=== PATIENT | male | born 1975 | race Caucasian/White ===

== ENCOUNTER 2019-04-08 08:05 | Emergency (ER) | payer OTHER, SELFPAY ==
[2019-04-08 08:06] VITALS: BP 158/94; PULSE 76; RESP 18; TEMP 36.6; O2SAT 98; BMI 30.5
--- NOTE | 2019-04-08 08:24 | CT_ITS ---
STUDY: CT ABDOMEN AND PELVIS WITH CONTRAST REASON FOR EXAM: Male, 43 years old. LOWER ABDOM PAIN INTERMITTEN FEVER X 2 WEEKS RADIATION DOSAGE (If Supplied By Facility): CTDIvol = ( 17.64 ) mGy, DLP = ( 1378.89 ) mGycm TECHNIQUE: Transaxial images were obtained from the dome of the diaphragm to the symphysis pubis with oral contrast. IV 100mL Isovue-300 W ORAL was administered. Sagittal and coronal images were reconstructed. Individualized dose optimization techniques were used for this CT. COMPARISON: None. FINDINGS: The visualized lung bases are unremarkable. The visualized portions of the heart are within normal limits. Normal liver. Normal gallbladder and extrahepatic biliary system. Normal spleen. Normal pancreas. Normal bilateral adrenal glands. 3 cm cyst in the midsection right kidney appear Normal left kidney. Normal visualized stomach. Normal small intestine. Normal colon. There are surgical clips in the region of the appendix consistent with a prior appendectomy. Normal abdominal aorta. Normal inferior vena cava. Normal retroperitoneum. Normal urinary bladder. Normal abdominal wall. Normal osseous structures. CT/Abdomen/Pelvis WITH Contrast IMPRESSION: Normal enhanced CT of the abdomen and pelvis. Electronically Signed: Trenton Danielle MD at 11:03 EST Tel , Service support ,
--- NOTE | 2019-04-08 08:24 | EKG12_ITS ---
Test Reason : Blood Pressure : / mmHG Vent. Rate : 069 BPM Atrial Rate : 069 BPM P-R Int : 156 ms QRS Dur : 098 ms QT Int : 414 ms P-R-T Axes : 051 027 029 degrees QTc Int : 443 ms Normal sinus rhythm Normal ECG Confirmed by MANNY SIMENTAL MD ([id number]), telegraph editor ROSALIA BARNES ([id number]) on 04/12/2019 9:04:57 AM Referred By: DONNA Confirmed By:MANNY SIMENTAL MD
--- NOTE | 2019-04-08 08:25 | ED.VIS.GEN ---
History of Present Illness Chief Complaint: Abd Pain Informant: Patient, Family Onset: Weeks Context: Gradual Onset Timing: Waxes and wanes Current Severity: Moderate Maximum Severity: Moderate Narrative: Patient presents with continued epigastric abdominal pain. Patient has had symptoms for the last month or so. Has had 5 or 6 ER visits over that time. He is currently on Pepcid, Carafate, pantoprazole. Patient states this morning he woke up but just felt very weak. He was able to ambulate to the car to have his bring him to the emergency room. He has not been seen at this facility previously. I was able to review some notes from [facility] where he was seen twice in the last 2 or 3 days. Blood work was unremarkable. I do not see imaging studies. Patient was referred to GI for follow-up. He has an appointment in 1 week. - Past Medical History (1) GERD (gastroesophageal reflux disease) Status: Chronic (2) Gastritis Status: Chronic (3) History of appendectomy Status: Chronic Past Medical History - Allergies and Home Meds Allergies/Adverse Reactions: Allergies erythromycin base Allergy (Verified 04/08/19 08:09) Hives Penicillins Allergy (Verified 04/08/19 08:09) Rash Primary Care Physician: Hood Moore DO [Primary Care Provider] - Prior records reviewed: Yes Lives: Spouse/ Significant Other Review of Systems General: Denies: Chills, Fever Eyes: Denies: Visual changes - bilaterally ENT: Denies: Bilateral ear pain Cardiovascular: Denies: Chest pain Respiratory: Denies: Dyspnea, Cough Gastrointestinal: Reports: Abdominal pain, Nausea Genitourinary: Denies: Dysuria Musculoskeletal: Reports: Myalgias, Arthralgias, Extremity Pain Skin: Denies: Rash Neurological: Reports: Weakness - Dentalized weakness. Denies: Headache Hematologic: Denies: Easy bruising Allergy: Denies: Uticaria Physical Exam Vital Signs/Narrative: Vital Signs Temp Pulse Resp BP Pulse Ox 04/08/19 08:06 98 F 76 18 158/94 H 98 Inital Vital Signs reviewed: Yes General: Well nourished, Well developed Head: Normocephalic ENT: Moist mucous membranes Neck: Supple Cardiovascular: Regular rate, Regular rhythm Respiratory: No distress, CTA bilaterally Abdomen: Soft, Tender - Generalized tenderness to palpation., Hypoactive bowel sounds. Negative for: Guarding, Rebound tenderness Skin: Normal color Neurological: Alert, Oriented x3 Psychological: - - Anxious Diagnostic/Tx/Re-eval Impressions Abdomen/Pelvis CT 04/08/19 08:24 IMPRESSION: Normal enhanced CT of the abdomen and pelvis. Electronically Signed: Trenton Danielle MD at 11:03 EST Tel , Service support , 04/08/19 08:24 Abdomen/Pelvis WITH Contrast [CT] Stat Laboratory Results 04/08/19 04/08/19 04/08/19 09:00 09:00 09:00 WBC 5.8 RBC 5.51 Hgb 15.9 Hct 47.7 MCV 86.6 MCH 28.9 MCHC 33.3 RDW Std Deviation 40.0 RDW Coeff of Margo 12.7 Plt Count 204 MPV 10.2 Immature Gran % (Auto) 0.300 Neut % (Auto) 66.4 Lymph % (Auto) 21.9 [place] % (Auto) 9.3 Eos % (Auto) 1.4 Baso % (Auto) 0.7 Absolute Neuts (auto) 3.9 Absolute Lymphs (auto) 1.27 Nucleated RBC % 0 Sodium 141 Potassium 3.7 Chloride 106 Carbon Dioxide 29.0 Anion Gap 6 BUN 11 Creatinine 1.06 Estim Creat Clear Calc 90.87 Est GFR (MDRD) Af Amer 97 Est GFR (MDRD) Non-Af 80 BUN/Creatinine Ratio 10.4 Glucose 110 H Lactic Acid 0.6 Calcium 9.3 Total Bilirubin 0.60 Direct Bilirubin 0.15 AST 18 ALT 59 Alkaline Phosphatase 71 Troponin I < 0.015 Total Protein 7.7 Albumin 3.8 Globulin 3.9 Lipase 216 - Medical Decision Making Patient was given morphine and Zofran along with IV fluids. On repeat evaluation he states he still has significant pain along the waistband area. The epigastric pain seems to be improved. I spoke with Dr. Riddle, on-call for surgery. She reviewed his test and CT images. She recommended giving a dose of IV Protonix now. If he has been on the Protonix more than 2 weeks he should try [id number] Nexium instead to see if he has better response to this. In speaking with the patient has been on Protonix for the past 4 weeks. He will try [id number] Nexium. He will call Dr. Riddle's office with follow-up on Thursday and scope early next week. Patient be given a short course of [place] to help with pain and given a prescription for Zofran. ED Disposition - Plan for ED Patient: Disposition: Home or Assisted Living Diagnosis: Abdominal pain Instructions: ABDOMINAL PAIN, Unkown Cause, (Male) Prescriptions: Hydrocodone Bitart/Apap 5-325 [[place] 5MG-325MG] 1 tablet PO Q6H PRN PRN 3 Days #10 tablet PRN Reason: Pain Transmission Status: Received by [facility]/pharmacy #[id number] Ondansetron [Zofran Odt] 4 mg PO Q8H PRN PRN #10 tab PRN Reason: Nausea Transmission Status: Pending to [facility]/pharmacy #[id number] Referrals: Ammy Riddle MD [STAFF PHYSICIAN] - As soon as possible Additional Instructions: As discussed, try over the counter Nexium in place of Protonix to see if you have a better response. Call Dr Riddle's office as soon as possible - let them know you were seen in the ED and Dr Riddle was contacted. She wants to see you in the office on Thursday.
--- NOTE | 2019-04-08 08:36 | NURSING ---
NO OLD EKGS
[2019-04-08] MEDS: 0.9% Normal Saline 1,000 ML 150 ML IV (08:54)
[2019-04-08] MEDS: Morphine 4 MG/ML Syringe IV (08:54)
[2019-04-08] MEDS: Ondansetron 4 MG/2 ML Vial IV (08:54)
[2019-04-08 09:18] LABS: Absolute Lymphocyte Count 1.27 X10^3/uL (0.83-4.51); Absolute Neutrophil Count 3.9 X10^3/uL (2.0-7.7); Basophil# 0.04 X10^3/uL; Basophil% 0.7 % (0-1); Eosinophil# 0.08 X10^3/uL; Eosinophils% 1.4 % (0-5); Hematocrit 47.7 % (40-54); Hemoglobin 15.9 g/dL (13.0-16.5); Lymphocyte # 1.27 X10^3/ul (4.0); Lymphocyte % 21.9 % (19-41); Mean Corp Hgb Conc 33.3 g/dL (32-36); Mean Corpuscular Hgb 28.9 pg (27.0-32.0); Mean Corpuscular Volume 86.6 fL (80-94); Mean Platelet Vol. 10.2 fl (6.2-12.0); Monocyte# 0.54 X10^3/uL; Monocyte% 9.3 % (0-10); NRBC Flagged by Analyzer 0 % (0-5); Neutrophil # 3.85 X10^3/uL (2.7-7.7); Neutrophil % 66.4 % (47-70); Platelet Count 204 K/mm3 (150-450); RBC Distribution Width CV 12.7 % (11.6-14.6); Red Blood Count 5.51 M/mm3 (4.6-6.2); White Blood Count 5.8 K/mm3 (4.4-11.0)
[2019-04-08 09:35] LABS: AST(SGOT) 18 U/L (15-37); Alanine Aminotransfer ALT/SGPT 59 U/L (16-61); Albumin, Serum 3.8 g/dL (3.2-5.0); Alkaline Phosphatase 71 U/L (45-117); Anion Gap 6 (5-15); BUN 11 mg/dL (7-18); BUN/Creat Ratio 10.4 RATIO (10-20); Bilirubin, Direct 0.15 mg/dL (0.00-0.30); Calcium,Total 9.3 mg/dL (8.5-10.1); Chloride 106 mmol/L (98-107); Creatinine, Serum 1.06 mg/dL (0.70-1.30); EST Glomerular Filtration Rate 80 mL/min (>60); Est Glom Filt Rate - Afr Amer 97 mL/min (>60); Estimated Creatinine Clearance 90.87 ml/min; Globulin 3.9 g/dL (2.2-4.2); Glucose 110 mg/dL (74-106); Lipase 216 U/L (73-393); Potassium 3.7 mmol/L (3.5-5.1); Protein, Total 7.7 g/dL (6.4-8.2); Sodium Level 141 mmol/L (136-145)
[2019-04-08 09:42] LABS: Lactic Acid 0.6 mmol/L (0.4-1.9)
[2019-04-08 12:05] VITALS: BP 145/101; PULSE 76; RESP 16; O2SAT 96
[2019-04-08 12:49] VITALS: BP 140/89; PULSE 75; RESP 12; O2SAT 96
== END 2019-04-08 12:51 | disposition home or self-care (01) ==
PROVIDERS: Emergency Provider Emergency Medicine; Family Provider Family Medicine; PCP Family Medicine
DX: R10.13 Epigastric pain (principal); R53.1 Weakness; K21.9 Gastro-esophageal reflux disease without esophagitis; Z79.899 Other long term (current) drug therapy; Z88.1 Allergy status to other antibiotic agents; Z88.0 Allergy status to penicillin; Z87.19 Personal history of other diseases of the digestive system
CPT/HCPCS: 74177; 80048; 80076; 83605; 83690; 84484; 85025; 93005; 96361; 96365; 96375; 99284; J7030; J7050; Q9967; A4216; J2405

== ENCOUNTER 2019-04-11 03:42 | Emergency (ER) | payer OTHER, SELFPAY ==
[2019-04-11 03:44] VITALS: BP 148/100; PULSE 79; RESP 14; TEMP 36.5; O2SAT 100; BMI 31.2
--- NOTE | 2019-04-11 03:44 | ED.RN ---
RN CALLED FOR EKG, PULLED OLD EKGS FOR
--- NOTE | 2019-04-11 03:56 | EKG12_ITS ---
Test Reason : CP Blood Pressure : / mmHG Vent. Rate : 078 BPM Atrial Rate : 078 BPM P-R Int : 134 ms QRS Dur : 092 ms QT Int : 388 ms P-R-T Axes : 009 043 022 degrees QTc Int : 442 ms Sinus rhythm with occasional Premature ventricular complexes Otherwise normal ECG Confirmed by KALYAN CRUZ, VESTA ([id number]), loan expeditor YUDELKA REYES ([id number]) on 04/13/2019 10:44:37 AM Referred By: DONNA Confirmed By:VESTA BIGGS MD
--- NOTE | 2019-04-11 03:57 | ED.DCSUM_ITS ---
History of Present Illness Chief Complaint: Chest Pain Informant: Patient Onset: Days Context: Gradual Onset Current Severity: Moderate Maximum Severity: Moderate Narrative: Patient has had multiple recent ED visits to different facilities for severe reflux disease. He is scheduled to see Dr. Riddle in the office today to schedule a scope. Patient was seen in the ER just a few days ago. He states his pain was good for a day and a half, but returned after eating a pork chop from [employer]. He has had reflux more severe now again for the past 24 hours. He is not been able to sleep. He tried Maalox as well as Nexium without improvement. - Past Medical History (1) GERD (gastroesophageal reflux disease) Status: Chronic (2) Gastritis Status: Chronic (3) History of appendectomy Status: Chronic Past Medical History - Allergies and Home Meds Allergies/Adverse Reactions: Allergies erythromycin base Allergy (Verified 04/11/19 03:43) Hives Penicillins Allergy (Verified 04/11/19 03:43) Rash Primary Care Physician: Hood Moore DO [Primary Care Provider] - Prior records reviewed: Yes Lives: Spouse/ Significant Other Smoking Status: Never smoker Review of Systems General: Denies: Chills, Fever Eyes: Denies: Visual changes - bilaterally ENT: Denies: Sore throat Cardiovascular: Reports: Chest pain Respiratory: Denies: Dyspnea, Cough Gastrointestinal: Reports: Abdominal pain. Denies: Nausea, Vomiting, Diarrhea Musculoskeletal: Reports: Back pain. Denies: Neck pain Skin: Denies: Rash Allergy: Denies: Uticaria Physical Exam Vital Signs/Narrative: Vital Signs Temp Pulse Resp BP Pulse Ox 04/11/19 03:44 97.7 F L 79 14 148/100 H 100 Inital Vital Signs reviewed: Yes General: Well nourished, Well developed Head: Normocephalic ENT: Moist mucous membranes Neck: Supple Cardiovascular: Regular rate, Regular rhythm Respiratory: No distress, CTA bilaterally Abdomen: Soft, Normal bowel sounds, Tender - Mild tenderness in the epigastrium.. Negative for: Guarding, Rebound tenderness Extremities: Nontender Skin: Normal color, Pallor Neurological: Alert, Oriented x3 Psychological: Normal affect Diagnostic/Tx/Re-eval Laboratory Results 04/11/19 04/11/19 04/11/19 04:00 04:00 04:00 WBC 6.0 RBC 5.54 Hgb 15.7 Hct 46.4 MCV 83.8 MCH 28.3 MCHC 33.8 RDW Std Deviation 39.0 RDW Coeff of Margo 12.8 Plt Count 177 MPV 10.3 Immature Gran % (Auto) 0.300 Neut % (Auto) 66.2 Lymph % (Auto) 20.5 [place] % (Auto) 11.0 H Eos % (Auto) 1.5 Baso % (Auto) 0.5 Absolute Neuts (auto) 4.0 Absolute Lymphs (auto) 1.23 Nucleated RBC % 0 Sodium 137 Potassium 4.2 Chloride 105 Carbon Dioxide 27.0 Anion Gap 5 BUN 10 Creatinine 1.06 Estim Creat Clear Calc 90.87 Est GFR (MDRD) Af Amer 97 Est GFR (MDRD) Non-Af 80 BUN/Creatinine Ratio 9.4 L Glucose 106 Calcium 8.9 Total Bilirubin 0.90 Direct Bilirubin 0.11 AST 37 ALT 66 H Alkaline Phosphatase 71 Troponin I < 0.015 Total Protein 7.7 Albumin 3.8 Globulin 3.9 Lipase 209 TSH 2.47 Cancelled - EKG Initial EKG Interpretation: Sinus Rhythm - Sinus at 78 with no acute ischemia. Occasional PVCs noted. - Medical Decision Making Patient's work-up from a few days ago was reviewed. Patient was given morphine, Zofran, Protonix, and a GI cocktail. On repeat evaluation he stated his pain was not improved. He reported a tingling sensation across his face and in both hands. Patient has significant anxiety and was given 1 mg of p.o. Ativan. On repeat evaluation he states the tingling is resolved. He is now getting tight muscle spasms throughout his back and in his lower legs. His right-sided chest pain is reproducible. Patient has been holding himself tense for the past several days secondary to his pain. He does have significant anxiety related to this. He is given a dose of Flexeril and at this time is resting comfortably. He will be discharged from the ED to go to his appointment with Dr. Riddle this morning. He is supposed to be scheduled for a scope this week. ED Disposition - Plan for ED Patient: Disposition: Home or Assisted Living Diagnosis: Muscle spasm, GERD (gastroesophageal reflux disease) Instructions: CHEST PAIN, NonCardiac, Muscle Spasm, GERD (Adult) Referrals: Hood Moore DO [Primary Care Provider] - Ammy Riddle MD [STAFF PHYSICIAN] -
[2019-04-11] MEDS: Mag Hydrox/Al Hydrox/Simeth 30 ML UDC PO (04:08)
[2019-04-11] MEDS: 0.9% Normal Saline 1,000 ML 150 ML IV (04:08)
[2019-04-11 04:10] LABS: Absolute Lymphocyte Count 1.23 X10^3/uL (0.83-4.51); Basophil# 0.03 X10^3/uL; Basophil% 0.5 % (0-1); Eosinophil# 0.09 X10^3/uL; Eosinophils% 1.5 % (0-5); Hematocrit 46.4 % (40-54); Hemoglobin 15.7 g/dL (13.0-16.5); Lymphocyte # 1.23 X10^3/ul (4.0); Lymphocyte % 20.5 % (19-41); Mean Corp Hgb Conc 33.8 g/dL (32-36); Mean Corpuscular Hgb 28.3 pg (27.0-32.0); Mean Corpuscular Volume 83.8 fL (80-94); Mean Platelet Vol. 10.3 fl (6.2-12.0); Monocyte# 0.66 X10^3/uL; NRBC Flagged by Analyzer 0 % (0-5); Neutrophil # 3.97 X10^3/uL (2.7-7.7); Neutrophil % 66.2 % (47-70); Platelet Count 177 K/mm3 (150-450); RBC Distribution Width CV 12.8 % (11.6-14.6); Red Blood Count 5.54 M/mm3 (4.6-6.2)
[2019-04-11 04:41] LABS: AST(SGOT) 37 U/L (15-37); Alanine Aminotransfer ALT/SGPT 66 U/L (16-61); Albumin, Serum 3.8 g/dL (3.2-5.0); Alkaline Phosphatase 71 U/L (45-117); Anion Gap 5 (5-15); BUN 10 mg/dL (7-18); BUN/Creat Ratio 9.4 RATIO (10-20); Bilirubin, Direct 0.11 mg/dL (0.00-0.30); Calcium,Total 8.9 mg/dL (8.5-10.1); Chloride 105 mmol/L (98-107); Creatinine, Serum 1.06 mg/dL (0.70-1.30); EST Glomerular Filtration Rate 80 mL/min (>60); Est Glom Filt Rate - Afr Amer 97 mL/min (>60); Estimated Creatinine Clearance 90.87 ml/min; Globulin 3.9 g/dL (2.2-4.2); Glucose 106 mg/dL (74-106); Lipase 209 U/L (73-393); Potassium 4.2 mmol/L (3.5-5.1); Protein, Total 7.7 g/dL (6.4-8.2); Sodium Level 137 mmol/L (136-145); Thyroid Stim Hormone (TSH) 2.47 uIU/mL (0.358-3.74)
[2019-04-11] MEDS: Ondansetron 4 MG/2 ML Vial IV (04:52)
[2019-04-11] MEDS: Morphine 4 MG/ML Syringe IV (04:53)
[2019-04-11 04:58] VITALS: BP 135/90; PULSE 68; RESP 14; O2SAT 99
[2019-04-11] MEDS: LORazepam 1 MG Tablet PO (05:46)
[2019-04-11 06:02] VITALS: BP 139/97; PULSE 68; RESP 12; O2SAT 99
[2019-04-11] MEDS: cycloBENZAPRine HCl 10 MG Tablet PO (06:46)
--- NOTE | 2019-04-11 06:51 | ED.RN ---
DR. THOMPSON SAID IT IS OK TO TAKE PATIENT OFF OF THE MONITOR SO HE CAN CHANGE POSITIONS TO HELP HIS BACK SPASMS.
[2019-04-11 08:59] VITALS: BP 140/84; PULSE 79; RESP 18
== END 2019-04-11 09:01 | disposition home or self-care (01) ==
PROVIDERS: Emergency Provider Emergency Medicine; Family Provider Family Medicine; PCP Family Medicine
DX: M62.838 Other muscle spasm (principal); K21.9 Gastro-esophageal reflux disease without esophagitis; K29.70 Gastritis, unspecified, without bleeding; I49.3 Ventricular premature depolarization; R20.2 Paresthesia of skin; F41.9 Anxiety disorder, unspecified; Z79.899 Other long term (current) drug therapy; Z88.1 Allergy status to other antibiotic agents; Z88.0 Allergy status to penicillin
CPT/HCPCS: 80048; 80076; 83690; 84443; 84484; 85025; 93005; 96361; 96365; 96375; 99285; J7030; A4216; J2405

== ENCOUNTER 2019-04-14 08:20 | Day surgery (SDC) | payer OTHER, SELFPAY ==
[2019-04-11 09:36] VITALS: BMI 31.2
--- NOTE | 2019-04-13 01:59 | HP_ITS ---
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: No Is patient in pain?: No (Epigastric/ R Flank pain on and off) Allergies erythromycin base Allergy (Verified 04/12/19 09:39) Hives Penicillins Allergy (Verified 04/12/19 09:39) Rash Medications Ondansetron [Zofran Odt] 4 mg PO Q8H PRN PRN #10 tab 04/08/19 [Rx Confirmed 04/12/19] Sertraline HCl [Zoloft] 50 mg PO DAILY 04/08/19 [History Confirmed 04/12/19] Esomeprazole Magnesium [Nexium] 20 mg PO DAILY 04/11/19 [History Confirmed 04/12/19] cycloBENZAPRine HCl [Flexeril] 10 mg PO TID PRN PRN 04/12/19 [History Confirmed 04/12/19] PFSH Medical History Anxiety (Acute) Back problem (Acute) Fatigue (Acute) Epigastric pain (Acute) GERD (gastroesophageal reflux disease) (Chronic) Gastritis (Chronic) Muscle spasm (Acute) Surgical History Hx of left knee surgery (Acute) History of appendectomy (Chronic) Family History Brother Asthma Ulcer Father Diabetes Social History (Updated 04/13/19 @ 13:59 by Ammy Riddle MD) Smoking Status: Never smoker second hand exposure: No alcohol intake: never substance use type: does not use caffeine: Yes what type of physical activity do you participate in: none frequency: does not exercise HPI HPI HPI: CHANDAN AUSTIN, is a 43 M who presents to the office today for HPI HPI Surgical H&P: Yes HPI: CHANDAN AUSTIN, is a 43 M who presents to the office today for epigastric pain/right upper quadrant pain. Patient has had multiple visits to the ER for severe reflux. Patient was seen in the ER last week as well as this morning. Patient stated that yesterday he did have pork chop at [facility] and afterwards did have increased epigastric burning. Patient was previously on Protonix 40 mg daily which he did not state helped. Patient did buy [id number] Nexium 20 mg daily which has improved his symptoms however was not able to control the symptoms with the pork chop the same may have had a lot of seasoning on it. This morning patient also states that he had pain in the right upper quadrant around towards the back. In the ER he was given morphine but stated there is no relief and he was given some Flexeril as well. Patient was also given IV Protonix in the ER which did improve his epigastric pain. Patient states he has never had colonoscopy or EGD. Patient previously had an ultrasound done of his gallbladder in [place] which did show fatty liver, no gallstones or gallbladder wall thickening and a common hepatic duct of 3.2 mm this was done 04/01/2019. Patient also had lab done at that time which showed normal white blood cell count and normal liver functions except for ALT of 48 high normal 33. Patient states that his brother has had ulcers since he was a teenager. Patient denies previous history until more recently with the reflux. ROS General General: Yes weight change and fatigue Gastro Gastrointestinal: Yes abdominal pain, Yes nausea or vomiting, No blood in stool, Yes acid reflux, No gallbladder problem Exam Const General: cooperative, comfortable, no acute distress Resp Effort & Inspection: normal respiratory effort Cardio Rate: regular rate GI Inspection: non-distended Palpation: soft, no guarding, nontender Assessment & Plan Problems 1. GERD (gastroesophageal reflux disease) K21.9 2. Epigastric pain R10.13 Plan Recommend continuing to take his Nexium 20 mg p.o. tabs [id number] discussed patient he can take them for a total of 40 either 20 twice daily or 2 pills at 1 time. We will also get his ultrasound report of his gallbladder as he did have some right-sided pain with after eating a pork chop. Patient states that he just had an gallbladder ultrasound done in [place] which was negative per him. And he denies any history of right upper quadrant pain after eating and states that the pork chop may have had a bit of seasoning/spice on it. I have discussed the above with the patient. I have offered the patient EGD for evaluation. I have explained the risks/benefits of the procedure and described the procedure. I have discussed the risks with the patient, including but not limited to: infection, bleeding, perforation of the GI tract requiring emergency surgery, inability to complete the procedure, injury to any internal organs, complications of anesthesia, etc. - the patient understands and agrees to proceed. I have answered all the patient's questions to the patient's satisfaction and the patient has no further questions. Addendum: Patient's ultrasound report: no gallstones, no wall thickening, no pericholecystic fluid, common hepatic duct of 3.2 mm Ammy Riddle M.D. Pager: [phone] [facility] [address] [place] [address], [address] [place] [address] Office: [phone] Orders Orders: EGD 04/11/19 Plan Detail Follow Up We will schedule EGD Coding Level of Care Code Off vis,new,level 3 Diagnoses GERD (gastroesophageal reflux disease) K21.9 Epigastric pain R10.13 04/13/19 1359 <Electronically signed by Ammy Renae am, MD> Date _ Ammy Riddle MD I have examined the patient the following changes are noted: Patient still been taking the Nexium 20 mg p.o. daily and denies any epigastric pain nausea or vomiting. Patient is also been having normal bowel movements as well.
[2019-04-14 08:51] VITALS: BP 145/98; PULSE 95; RESP 16; TEMP 37; O2SAT 100; BMI 30.6
[2019-04-14] MEDS: Lactated Ringers 1,000 ML 100 ML IV (08:59)
--- NOTE | 2019-04-14 09:30 | EGD_PTH ---
PATIENT: CHANDAN AUSTIN LOC: EN U#:[id number] AGE/SX: 43/M ROOM: RE04/14/[address]: Dr. Ammy Riddle MD : 1975 BED: DIS: 04/14/2019 SPEC #: [id number] RECD: 04/14/19 10:29 STATUS: SINDHU VIVIAN #: [id number] DANNI: 04/14/19 09:[address]: Ammy Riddle DEPT: SURGICAL PATHOLOGY RECD BY: Elton Erazo ENTERED: 04/14/19 11:41 SP TYPE: EGD BIOPSY NICOLE DR: Dr. Hood Moore DO Tissues: A - Gastric mucous membrane B - Gastric mucous membrane Procedures: Surgery Specimen Level IV HEADER OPERATION: EGD ([facility]) PRE-OP DIAGNOSIS: GERD, epigastric pain TISSUE SUBMITTED: A - Antrum biopsy for H. pylori and path, B - GE junction biopsy MICROSCOPIC DIAGNOSIS A. Gastric antrum, biopsy: Mild chronic gastritis. See comment. B. Gastroesophageal junction, biopsy: Mild chronic inflammation. No evidence of goblet cell metaplasia. See comment. AM:gabe 04/15/19 COMMENT A. The results of immunohistochemistry for Helicobacter pylori will be reported separately ([id number]). B. Alcian blue/PAS stain with matched control supports the above diagnosis. MICROSCOPIC DESCRIPTION Slides are reviewed. GROSS DESCRIPTION A - Received in fixative is one container labeled with the patient's name and designated gastric antrum. The specimen consists of one irregular fragment of light corona soft tissue that measures 0.3 x 0.2 x 0.1 cm. The specimen is totally submitted in one cassette. B - Received in fixative is one container labeled with the patient's name and designated GE junction. The specimen consists of one irregular fragment of light corona soft tissue that measures 0.5 x 0.2 x 0.1 cm. The specimen is totally submitted in one cassette. / AM:gabe 04/14/19 TC:3 CPT: 59343 x2, 93254
--- NOTE | 2019-04-14 09:30 | IMM_PTH ---
PATIENT: CHANDAN AUSTIN LOC: [place] U#:[id number] AGE/SX: 43/M ROOM: RE04/14/[address]: Dr. Ammy Riddle MD : 1975 BED: DIS: 04/14/2019 SPEC #: [id number] RECD: 04/14/19 13:38 STATUS: SINDHU REQ #: [id number] DANNI: 04/14/19 09:[address]: Ammy Riddle DEPT: IMMUNOHISTOCHEMISTRY RECD BY: Gaby Gonzalez ENTERED: 04/14/19 13:39 SP TYPE: IMMUNO OTHR DR: Dr. Hood Moore, Tissues: A - Stomach, NOS Procedures: H Pylori (initial) PHYSICIAN & INSTITUTION [place] [address] SPECIMEN INFORMATION: Tissue Source: A - Antrum biopsy Clinical Info: GERD, epigastric pain Specimen Number: [id number] CPT code: 55002 METHODOLOGY: Deparaffinized sections of prefer/formalin-fixed tissue or PAP/DQ stained slides are incubated with monoclonal/polyclonal antibodies/oligonucleotide probes. Localization is made via biotin free immunoperoxidase method. Appropriate controls are performed and reacted as expected. Results on target cell population are indicated in the following table: RESULTS: ANTIBODY / CLONE RESULT Block A H Pylori (polyclonal) negative These tests were developed and their performance characteristics determined by [facility]. They may not have been cleared or approved by the U.S. Food and Drug Administration. The FDA has determined that such clearance or approval is not necessary. INTERPRETATION: A. Antrum biopsy: Negative for Helicobacter pylori organisms. AM:gabe 04/15/19
[2019-04-14 09:32] VITALS: BP 138/99; BP 148/98; PULSE 76; RESP 16; TEMP 36.5; O2SAT 97
[2019-04-14 09:37] VITALS: BP 137/102; BP 148/98; PULSE 83; RESP 16; O2SAT 98
[2019-04-14 09:42] VITALS: BP 144/100; BP 148/98; PULSE 79; RESP 16; O2SAT 99
[2019-04-14 09:47] VITALS: BP 138/97; BP 148/98; PULSE 71; RESP 16; TEMP 36.7; O2SAT 99
[2019-04-14 10:04] VITALS: BP 148/98
--- NOTE | 2019-04-20 10:38 | OP.EGD_ITS ---
Patient Name: David Smith Procedure Date: 04/14/2019 9:04 AM Date of : 1975 Age: 43 Procedure: Upper GI endoscopy Indications: Epigastric abdominal pain, Suspected gastro-esophageal reflux disease Providers: Ammy Riddle MD Referring MD: Hood Moore Medicines: Monitored Anesthesia Care Patient Profile: This is a 43 year old male. Complications: No immediate complications. Procedure: Pre-Anesthesia Assessment: - Prior to the procedure, a History and Physical was performed, and patient medications and allergies were reviewed. The patient's tolerance of previous anesthesia was also reviewed. The risks and benefits of the procedure and the sedation options and risks were discussed with the patient. All questions were answered, and informed consent was obtained. Prior Anticoagulants: The patient has taken no previous anticoagulant or antiplatelet agents. ASA Grade Assessment: II - A patient with mild systemic disease. After reviewing the risks and benefits, the patient was deemed in satisfactory condition to undergo the procedure. After obtaining informed consent, the endoscope was passed under direct vision. Throughout the procedure, the patient's blood pressure, pulse, and oxygen saturations were monitored continuously. The gastroscope was introduced through the mouth, and advanced to the second part of duodenum. The upper GI endoscopy was accomplished without difficulty. The patient tolerated the procedure well. Scope In: 9:18:44 AM Scope Out: 9:26:54 AM Total Procedure Duration Time 0 hours 8 minutes 10 seconds Findings: The Z-line was irregular and was found 37 cm from the incisors. Biopsies were taken with a cold forceps for histology. Striped mildly erythematous mucosa without bleeding was found in the gastric antrum. Biopsies were taken with a cold forceps for Helicobacter pylori cultures. Biopsies were taken with a cold forceps for histology. Biopsies were taken with a cold forceps for Helicobacter pylori testing using a rapid urease test. The examined duodenum was normal. The cardia and gastric fundus were normal on retroflexion. Impression: - Z-line irregular, 37 cm from the incisors. Biopsied. - Erythematous mucosa in the antrum. Biopsied. - Normal examined duodenum. Recommendation: - Discharge patient to home. - Resume previous diet. - Use Nexium (esomeprazole) 20 mg PO daily. - Continue present medications. Procedure Code(s): --- Professional --- 77153, Esophagogastroduodenoscopy, flexible, transoral; with biopsy, single or multiple Diagnosis Code(s): --- Professional --- K22.8, Other specified diseases of esophagus K31.89, Other diseases of stomach and duodenum R10.13, Epigastric pain CPT copyright 2017 [employer]. All rights reserved. The codes documented in this report are preliminary and upon cigarette making examiner review may be revised to meet current compliance requirements. MD Ammy Valenzuela MD 04/14/2019 9:36:23 AM This report has been signed electronically. Number of Addenda: 0 Note Initiated On: 04/14/2019 9:04 AM
== END 2019-04-14 10:35 | disposition home or self-care (01) ==
LOC: EN 08:21 → AC 08:22
PROVIDERS: Family Provider Family Medicine; PCP Family Medicine; Referring Provider Family Medicine; Visit Provider Surgery
PROC: 0DJ08ZZ Inspection of Upper Intestinal Tract, Via Natural or Artificial Opening Endoscopic (ICD-10-PCS; CPT 43235; principal; 2019-04-14 09:25)
DX: K29.50 Unspecified chronic gastritis without bleeding (principal); K21.9 Gastro-esophageal reflux disease without esophagitis; R10.11 Right upper quadrant pain; Z88.1 Allergy status to other antibiotic agents; Z88.0 Allergy status to penicillin; Z79.899 Other long term (current) drug therapy
CPT/HCPCS: 43239; 88305; 88342; J7120

== ENCOUNTER 2019-04-15 15:38 | Observation (INO) | payer OTHER, SELFPAY ==
[2019-04-14 08:51] VITALS: BMI 30.6
[2019-04-15] VITALS (8 sets, daily range): BP systolic 139–143; BP diastolic 87–92; PULSE 72–86; RESP 13–15; TEMP 36.7; O2SAT 97–99; BMI 30.1; BMI 29.5
--- NOTE | 2019-04-15 15:49 | EKG12_ITS ---
Test Reason : CP Blood Pressure : / mmHG Vent. Rate : 079 BPM Atrial Rate : 079 BPM P-R Int : 164 ms QRS Dur : 096 ms QT Int : 386 ms P-R-T Axes : 038 023 019 degrees QTc Int : 442 ms Normal sinus rhythm Normal ECG Confirmed by KALYAN CRUZ, VESTA ([id number]), index editor ROSALIA BARNES ([id number]) on 04/18/2019 10:26:36 AM Referred By: DC Confirmed By:VESTA BIGGS MD
--- NOTE | 2019-04-15 15:49 | CT_ITS ---
STUDY: CTA CHEST REASON FOR EXAM: Male, 43 years old. Anterior chest pain and tachycardia. EGD yesterday with gastric biopsy. RADIATION DOSAGE (If Supplied By Facility): CTDIvol = ( 11.98 ) mGy, DLP = ( 493.47 ) mGycm TECHNIQUE: The examination was performed with the intravenous administration of 100mL Isovue-370. Post-processing of the angiographic images was performed, with multiplanar reformation and 3D reconstruction. Individualized dose optimization techniques were used for this CT. COMPARISON: None. FINDINGS: Normal enhancement of the main pulmonary artery and right and left pulmonary arteries. Normal enhancement of the bilateral peripheral pulmonary arteries. There is no demonstrated pulmonary embolism. Normal thoracic aorta and visualized great vessels. There is no demonstrated aortic dissection. Normal heart and pericardium. Minimal atherosclerotic change of the coronary arteries. There is a 3.6 x 2.6 x 5.7 cm partially calcified mass in the subcarinal space. Calcified lymph nodes are seen in the left hilum. Normal visualized trachea and bronchi. The lungs are well expanded. Normal pulmonary parenchyma. Normal pleura. Normal chest wall structures. There is a hypodensity in the right thyroid lobe. There are degenerative changes of thoracic spine. Normal visualized upper abdomen. CT/CTA Chest W/WO Contrast IMPRESSION: 1. No evidence of pulmonary embolus. 2. No aortic dissection or aneurysm. 3. Calcified subcarinal and left hilar lymph nodes. 4. Minimal atherosclerotic changes of coronary arteries. 5. Normal visualized esophagus and stomach. 6. Minimal degenerative changes of the thoracic spine. Electronically Signed: Irvin Holm DO at 17:29 EST Tel [phone], Service support ,
--- NOTE | 2019-04-15 15:56 | ED.VISSUMM ---
- ER Visit Summary Date of Service: 04/15/19 Chief Complaint: Chest pain History of Present Illness: The patient is a 43 M with anterior bilateral chest pain that started with wake up this morning. It is a burning pain. Nothing seems to bring it on or make it worse. He did have an EGD yesterday with gastric biopsy. He is denying any abdominal pain or GI symptoms. Denying any fevers or respiratory symptoms. Denies any cardiac history. Denies any history of blood clots, but does have some pain in his right calf. No other symptoms. Physical Examination: Afebrile and vital signs unremarkable. Heart regular rate and rhythm. Lungs clear. Right calf tender to palpation diffusely but no edema, cords, or other abnormalities noted. Skin appears normal. Test Results: EKG shows sinus rhythm at a rate of 79. We will check labs and imaging. Emergency Department Course and Treatment: CBC, BMP, troponin unremarkable. Chest CTA showed no evidence of PE or dissection. He does have atherosclerosis and calcified lymph nodes and degenerative spinal changes. No sign of esophageal trauma or other abnormality. On reevaluation, patient is stable. He says that he has pain radiating into his jaw and back. He has athero-on CT. He has not had a CT or other cardiac testing. Heart score is 4. He was treated with aspirin and the hospitalist was contacted for observation. Treatment Plan: As above Disposition: PCU observation Impression: 1. Chest pain This note was generated with [employer] dictation software. It may contain incorrect words, spelling, and punctuation that were not noted in review of the chart prior to signing ED Disposition - Plan for ED Patient: Referrals: Hood Moore DO [Primary Care Provider] -
[2019-04-15 16:26] LABS: Absolute Lymphocyte Count 1.55 X10^3/uL (0.83-4.51); Basophil# 0.03 X10^3/uL; Basophil% 0.6 % (0-1); Eosinophil# 0.14 X10^3/uL; Eosinophils% 2.7 % (0-5); Hematocrit 45.9 % (40-54); Lymphocyte # 1.55 X10^3/ul (4.0); Lymphocyte % 30.4 % (19-41); Mean Corp Hgb Conc 32.7 g/dL (32-36); Mean Corpuscular Hgb 27.9 pg (27.0-32.0); Mean Corpuscular Volume 85.5 fL (80-94); Mean Platelet Vol. 9.9 fl (6.2-12.0); Monocyte# 0.39 X10^3/uL; Monocyte% 7.6 % (0-10); NRBC Flagged by Analyzer 0 % (0-5); Neutrophil # 2.98 X10^3/uL (2.7-7.7); Neutrophil % 58.5 % (47-70); Platelet Count 158 K/mm3 (150-450); RBC Distribution Width CV 12.9 % (11.6-14.6); Red Blood Count 5.37 M/mm3 (4.6-6.2); White Blood Count 5.1 K/mm3 (4.4-11.0)
[2019-04-15 16:41] LABS: Anion Gap 4 (5-15); BUN 10 mg/dL (7-18); BUN/Creat Ratio 7.2 RATIO (10-20); Calcium,Total 9.2 mg/dL (8.5-10.1); Chloride 105 mmol/L (98-107); Creatinine, Serum 1.39 mg/dL (0.70-1.30); EST Glomerular Filtration Rate 59 mL/min (>60); Est Glom Filt Rate - Afr Amer 71 mL/min (>60); Estimated Creatinine Clearance 69.29 ml/min; Glucose 137 mg/dL (74-106); Potassium 3.5 mmol/L (3.5-5.1); Sodium Level 138 mmol/L (136-145)
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
[2019-04-15] MEDS: Aspirin 81 MG TAB.CHEW 324 MG PO (18:20)
--- NOTE | 2019-04-15 18:30 | EKG12_ITS ---
Test Reason : CP ADMIT Blood Pressure : / mmHG Vent. Rate : 074 BPM Atrial Rate : 074 BPM P-R Int : 138 ms QRS Dur : 098 ms QT Int : 404 ms P-R-T Axes : 022 028 025 degrees QTc Int : 448 ms Sinus rhythm with occasional Premature ventricular complexes Otherwise normal ECG When compared with ECG of 15-APR-2019 15:44, MANUAL COMPARISON REQUIRED, DATA IS UNCONFIRMED Confirmed by KAMILLE CRUZ, MANNY ([id number]), staff editor KIM CLOUD ([id number]) on 04/19/2019 10:42:18 AM Referred By: DR CROWLEY Confirmed By:MANNY SIMENTAL MD
[2019-04-15] MEDS: Acetaminophen 325 MG Tablet 650 MG PO (23:24)
[2019-04-16] VITALS (8 sets, daily range): BP systolic 116–143; BP diastolic 74–82; PULSE 65–90; RESP 15–16; TEMP 36.2–36.8; O2SAT 96–100
--- NOTE | 2019-04-16 05:35 | EKG12_ITS ---
Test Reason : AM EKG Blood Pressure : / mmHG Vent. Rate : 070 BPM Atrial Rate : 070 BPM P-R Int : 144 ms QRS Dur : 094 ms QT Int : 412 ms P-R-T Axes : 007 035 028 degrees QTc Int : 444 ms Normal sinus rhythm Normal ECG When compared with ECG of 15-APR-2019 18:49, MANUAL COMPARISON REQUIRED, DATA IS UNCONFIRMED Confirmed by KAMILLE CRUZ, MANNY ([id number]), manager editorial KIM CLOUD ([id number]) on 04/19/2019 10:25:25 AM Referred By: DR CROWLEY Confirmed By:MANNY SIMENTAL MD
[2019-04-16] MEDS: Ondansetron 4 MG/2 ML Vial IV (05:45)
[2019-04-16] MEDS: Aspirin E.C. 81 MG Tablet PO (05:51)
[2019-04-16 06:46] LABS: Cholesterol 137 mg/dL (200); High Density Lipoprotein 33 mg/dL; Triglycerides 167 mg/dL; Very Low Density Lipoprotein 33 mg/dL (5-40)
--- NOTE | 2019-04-16 11:41 | DCINST_ITS ---
You will use the following diet at home:: No restrictions Your food should be the consistency of: Regular Your liquids should be the consistency of: Regular/Thin Discharge Activity: Return to Normal Activity Allergies/Adverse Reactions: Allergies erythromycin base Allergy (Verified 04/15/19 15:39) Hives Penicillins Allergy (Verified 04/15/19 15:39) Rash Medications to take at Discharge Esomeprazole Magnesium [Nexium] 20 mg PO DAILY 04/11/19 Acetaminophen [Tylenol Tablet] 650 mg PO Q6H PRN PRN tab 04/16/19 Primary Care Physician: Hood Moore DO [Primary Care Provider] - Please follow up with your Primary Care Physician in: 1-2 weeks Test Results: Test results from this visit will be discussed in further detail at your follow- up appointment, if applicable. Please Follow Up With: Ammy Riddle MD When: as directed Proposed Discharge Date: 04/16/19
--- NOTE | 2019-04-16 11:50 | STRESSREP_ITS ---
Stress Test Report Date: 04-16-2019 Procedure: Exercise tolerance test/imaging study Indications: Chest pain Consent: Per the patient Procedure: The patient exercised on a Wei protocol for 9 minutes and 35 seconds completing Stage III and 35 seconds of Stage IV achieving a peak heart rate of 171 bpm (97 % predicted maximal heart rate) with a peak blood pressure 190/84 mmHg and a peak MET capacity of 11 METs. The baseline ECG demonstrated normal sinus rhythm. The peak exercise ECG demonstrated no obvious ECG changes. There were no cardiac dysrhythmias pretest, during exercise, or recovery. The functional capacity was considered good. There was no complaint of chest discomfort during exercise or recovery. The examination was discontinued secondary to leg discomfort. Impression: 1. Technically adequate (percent predicted maximal heart rate greater than 85%) exercise tolerance test 2. Peak exercise ECG with no obvious ECG changes 3. There were no cardiac dysrhythmias pretest, during exercise, or recovery 4. Nuclear images pending Myocardial perfusion imaging study: Technique: The patient was injected with 13.5 mCi of technetium 99m Cardiolite and subsequently rest SPECT Cardiolite nuclear imaging was obtained in the horizontal long, vertical long, and short axis views. The patient exercised on a Wei protocol for 9 minutes and 35 seconds completing Stage III and 35 seconds of Stage IV achieving a peak heart rate of 171 bpm (97 % predicted maximal heart rate) with a peak blood pressure 190/84 mmHg and a peak MET capacity of 11 METs. The patient was injected with 42.1 mCi of technetium 99m Cardiolite and subsequently stress SPECT Cardiolite nuclear imaging was obtained in the horizontal long, vertical long, and short axis views. A gated Cardiolite study at peak stress was obtained. Interpretation: Rest and stress SPECT Cardiolite nuclear imaging status post realignment, normalization, and attenuation correction, demonstrates the appearance of relative uniform tracer uptake and myocardial perfusion appearing within normal limits. There is end systolic thickening and brightening. The gated Cardiolite study demonstrates myocardial thickening and inward wall motion. The reported LVEF is 58 %. Impression: 1. Rest and stress SPECT Cardiolite nuclear imaging demonstrate relative uniform tracer uptake and myocardial perfusion appearing within normal limits. 2. The gated Cardiolite study reports an LVEF of 58 %. This note was generated with [employer] software. It may contain incorrect words, spelling, and punctuation that were not noted in checking the note before signing.
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
== END 2019-04-16 11:42 | disposition home or self-care (01) ==
LOC: ED 16:20 → PCU 19:05
PROVIDERS: Emergency Provider Emergency Medicine; Family Provider Family Medicine; PCP Family Medicine; Visit Provider Family Medicine
DX: R07.89 Other chest pain (principal); K21.9 Gastro-esophageal reflux disease without esophagitis; Z79.899 Other long term (current) drug therapy; R53.83 Other fatigue
CPT/HCPCS: 36415; 71275; 78452; 80048; 80061; 84484; 85025; 93005; 93017; 96374; 99218; 99285; A9500; Q9967; A4216; G0378; J2405

== ENCOUNTER 2019-04-20 10:35 | Emergency (ER) | payer OTHER, SELFPAY ==
[2019-04-15 18:52] VITALS: BMI 29.5
[2019-04-20 10:36] VITALS: BP 150/87; PULSE 83; RESP 16; TEMP 36.6; O2SAT 100; BMI 30.1
[2019-04-20 10:46] LABS: Bedside Glucose 97 mg/dL (70-110)
--- NOTE | 2019-04-20 10:58 | ED.VISSUMM ---
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 He was given an orange because a suspected low blood sugar but he does not have any history of diabetes nor did anyone check his blood sugar. And he brought in the emergency department. He denies any nausea, vomiting, diarrhea or fever. No chills. No dysuria or hematuria. He is not been recently ill. He was hospitalized over the weekend for atypical chest pain with a negative stress test. At that time his CBC chemistries and glucose were unremarkable. Physical Examination: Middle-aged male no acute distress vital signs are stable afebrile. Pulse ox 90% on room air no signs hypoxia. HEENT exam normal. Moist membranes. No facial droop. Normal speech. Neck nontender. No lymphadenopathy. Lungs clear to auscultation bilaterally. Heart regular rate and rhythm no murmur. Rate about 80. Abdomen soft nontender normal bowel sounds no peritoneal signs. Patient is moving all 4 extremities. They are neurovascularly intact. No edema. No cords. Back nontender. Skin unremarkable. Neurologically is awake and alert with no focal motor deficits. Test Results: BG T was obtained was 97. Emergency Department Course and Treatment: Patient had tach trembling that resolved. Currently his blood sugar is 97 but he was given an orange. I explained to him we do not have a specific cause for this. It could have been low blood sugar but I do not know why he would have a low blood sugar. He ate breakfast. He is not diabetic. He has a completely normal exam at this time. He has had recent blood work which was unremarkable. He will be discharged home. Treatment Plan: Follow-up with his doctor. Disposition: Discharge Impression: Trembling resolved of uncertain etiology This note was generated with [employer] dictation software. It may contain incorrect words, spelling, and punctuation that were not noted in review of the chart prior to signing ED Disposition - Plan for ED Patient: Referrals: Hood Moore DO [Primary Care Provider] -
--- NOTE | 2019-04-20 11:04 | ED.DEP ---
ED Disposition - Plan for ED Patient: Disposition: Home or Assisted Living Referrals: Hood Moore DO [Primary Care Provider] - 3-5 Days Additional Instructions: Your labs from your recent admission were normal. Your exam is normal today. Your blood sugar was normal at 97. Follow-up with your doctor. Return if feeling worse.
[2019-04-20 11:20] VITALS: BP 150/83; BP 150/87; PULSE 83; RESP 17
== END 2019-04-20 11:22 | disposition home or self-care (01) ==
LOC: ED 11:08
PROVIDERS: Emergency Provider Emergency Medicine; Family Provider Family Medicine; PCP Family Medicine
DX: R25.1 Tremor, unspecified (principal); R07.89 Other chest pain; K21.9 Gastro-esophageal reflux disease without esophagitis; F32.9 Major depressive disorder, single episode, unspecified; Z79.899 Other long term (current) drug therapy
CPT/HCPCS: 82962; 99282

== ENCOUNTER 2019-05-15 16:12 | Emergency (ER) | payer OTHER, SELFPAY ==
[2019-05-14 13:43] VITALS: BMI 30.1
[2019-05-15 16:13] VITALS: BP 147/88; PULSE 93; RESP 16; TEMP 36.5; O2SAT 100; BMI 31.2
--- NOTE | 2019-05-15 16:38 | ED.VIS.GEN ---
History of Present Illness Chief Complaint: Chest Other Informant: Patient Onset: Days Context: Sudden Onset Timing: Continuous Quality: Pain Current Severity: Mild Maximum Severity: Severe Worsened by: Palpation and movement of left upper extremity Relieved by: Nothing Associated Symptoms: No associated symptoms Narrative: Is a 43-year-old male presents with pain near his left areola. There is no history of trauma. There is no URI symptoms past month. He was seen in our clinic and apparently referred to physical therapy. He was placed on Flexeril with no improvement. There is no history of male breast cancer in the family. He has not noted any drainage from his breast. He states they are swollen. Prior similar symptoms: Yes Recent Illness/Hospitalization: Yes - Past Medical History (1) Anxiety Status: Acute (2) Back problem Status: Acute (3) Epigastric pain Status: Acute (4) GERD (gastroesophageal reflux disease) Status: Chronic (5) Gastritis Status: Chronic (6) History of appendectomy Status: Chronic Comment: 04/22/2018 Past Medical History - Allergies and Home Meds Allergies/Adverse Reactions: Allergies sucralfate [From Carafate] Allergy (Intermediate, Verified 05/14/19 13:23) rash/SOB erythromycin base Allergy (Verified 05/14/19 13:23) Hives Penicillins Allergy (Verified 05/14/19 13:23) Rash Primary Care Physician: Hood Moore DO [Primary Care Provider] - 10-14 Days if not better Prior records reviewed: Yes Surgical History: appendectomy Lives: Alone Smoking Status: Never smoker Alcohol: None Drugs: None Review of Systems General: Denies: Chills, Fever, Malaise, Weight loss Cardiovascular: Reports: Chest pain. Denies: Palpitations, Heart racing, -, - Respiratory: Denies: Dyspnea, Cough, Dyspnea on exertion Gastrointestinal: Denies: Abdominal pain, Nausea, Vomiting, Diarrhea, Melena, Hematochezia Musculoskeletal: Denies: Myalgias, Arthralgias, Neck pain, Back pain, Swelling, Extremity Pain, -, - Skin: Denies: Rash, Wounds Hematologic: Denies: Easy bruising, Easy bleeding Physical Exam Vital Signs/Narrative: Vital Signs Temp Pulse Resp BP Pulse Ox 05/15/19 16:13 97.7 F L 93 16 147/88 H 100 Inital Vital Signs reviewed: Yes General: Well nourished, Well developed, No Acute Distress - Patient does seem slightly anxious Head: Normocephalic, Atraumatic Eyes: Perrl, EOMI. Negative for: Pale conjunctiva, Scleral icterus Neck: Supple, No lymphadenopathy, No JVD Cardiovascular: Regular rate, Regular rhythm, No murmurs, Normal S1, Normal S2 Respiratory: No distress, CTA bilaterally, Chest tenderness - There is pain palpation over the fifth intercostal space. There is no asymmetry of the chest wall. There is no dimpling or retractions noted. There is no drainage from the nipple. There is no axillary lymphadenopathy. There is no palpable mass. There is no dermatologic lesions or rash noted. Abdomen: Soft, Nontender, Nondistended, Normal bowel sounds Skin: Normal color, No rash, No Trauma. Negative for: Cyanosis, Diaphoresis, Jaundice Neurological: Alert, Oriented x3, Cranial nerves II-XII grossly intact, Normal Strength, Normal Sensation Psychological: - - Anxious. When informed what the treatment was he was concerned because NSAIDs can cause ulcers and bleeding. Diagnostic/Tx/Re-eval - Medical Decision Making Her left chest pain is muscle skeletal, costochondritis, cardiac versus pulmonary. Based on history and physical exam patient has costochondritis and was instructed to take 2 Aleve every 12 hours for next 2 to 5 days. ED Disposition - Plan for ED Patient: Disposition: Home or Assisted Living Diagnosis: Costochondritis, acute Instructions: CHEST WALL PAIN, Costochondritis Referrals: Hood Moore DO [Primary Care Provider] - 10-14 Days if not better Additional Instructions: Take 2 Aleve tablets every 12 hours for the next 3 to 5 days.
[2019-05-15 16:58] VITALS: RESP 15
== END 2019-05-15 16:59 | disposition home or self-care (01) ==
PROVIDERS: Emergency Provider Emergency Medicine; PCP Family Medicine
DX: M94.0 Chondrocostal junction syndrome [Tietze] (principal); K21.9 Gastro-esophageal reflux disease without esophagitis; Z79.899 Other long term (current) drug therapy; Z88.1 Allergy status to other antibiotic agents; Z88.0 Allergy status to penicillin
CPT/HCPCS: 99282

== ENCOUNTER 2019-05-19 15:00 | Outpatient (RCR) | payer OTHER, SELFPAY ==
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
--- NOTE | 2019-10-04 08:09 | HP.PTDCSUM ---
It has been my pleasure to treat CHANDAN AUSTIN referred by Dr. Estela Smith DC, with the diagnosis of THORACIC SPASMS,THORACIC PAIN ,RIB SUBLUXATION for a total of 9 visit(s). Discharge Date: Please see the following information for a summary of their discharge status. Subjective: Ribs sore from 2 sessions ago.Seeing chiropractor. Seen MD want sto cont with PT Bilateral Back Pain Intensity (Out of 10): 2 % Improvement: 60 Objective/Function: POSTURE: mild thoracic kyphosis. THORACIC ROM: flexion min loss,extension min loss ,rotation to left mod loss pain,right min loss. MMT: BUE 4/5,SHOULDERS 4-/5 ,serratous anterior 3+/5. PALPATION: upper back tight. Goal 1:: Patient to be Independant with HEP Goal 2:: Patient to improve posture for job demnads. Goal 3:: Patient to increase improve thoracic ROM for function of recovery Goal 4:: Patient improve back owestry by 5 points or > to improve QOL. Goal 5:: Patient be able to perform ADLS' and job demnads with min limitaion with less pain. Plan: WIIL NEED NEW ORDER TO RESUME THERAPY. PT INTERVENTIONS WITH POSTURAL EX'S, THORACIC MOBLITY/STRENGTHENING, MODALTIES If there are questions or concerns regarding this patient's physical therapy, please feel free to call me at [phone]. Thank you for the referral of this patient. Sincerely, Jair Harris, PT, Cert MDT, OCS
== END 2019-05-19 19:00 | disposition home or self-care (01) ==
LOC: PT 15:00
PROVIDERS: PCP Family Medicine; Referring Provider Chiropractor; Visit Provider Chiropractor
DX: S23.29XD Dislocation of other parts of thorax, subsequent encounter (principal); R25.2 Cramp and spasm; S23.100 Subluxation of unspecified thoracic vertebra; M54.6 Pain in thoracic spine
CPT/HCPCS: 97014; 97110; 97162; G0283

== ENCOUNTER → 2019-05-28 08:47 | Outpatient (CLI) | payer OTHER, SELFPAY ==
[2019-05-15 16:13] VITALS: BMI 31.2
--- NOTE | 2019-05-28 08:50 | MRI_ITS ---
STUDY: MRI THORACIC SPINE WITHOUT CONTRAST REASON FOR EXAM: Male, 43 years old. dysfunction of thoracic spine, pain,bilat shoulder and rib pain TECHNIQUE: Standardized fat and water weighted pulse sequences were obtained in the sagittal and axial planes. COMPARISON: None. FINDINGS: Normal kyphosis of the thoracic spine. There is no substantial scoliosis. There is mild diffuse disc space narrowing and endplate spondylosis without significant central canal or foraminal stenosis At T5/T6 there is a small central protrusion with indentation of the ventral spinal cord and mild central canal stenosis. Normal visualized thoracic cord. The soft tissue structures are unremarkable. MRI/Spine Thoracic (Routine) IMPRESSION: Mild degenerative changes. Electronically Signed: Adam Massey MD at 9:11 EST Tel , Service support ,
== END ==
PROVIDERS: PCP Family Medicine; Referring Provider Chiropractor; Visit Provider Chiropractor
DX: M54.6 Pain in thoracic spine (principal); M99.02 Segmental and somatic dysfunction of thoracic region
CPT/HCPCS: 72146

== ENCOUNTER 2019-05-28 16:37 | Emergency (ER) | payer OTHER, SELFPAY ==
[2019-05-28 16:38] VITALS: BP 138/99; PULSE 80; RESP 14; TEMP 36.8; O2SAT 98; BMI 31.2
--- NOTE | 2019-05-28 17:20 | EKG12_ITS ---
Test Reason : Blood Pressure : / mmHG Vent. Rate : 085 BPM Atrial Rate : 085 BPM P-R Int : 162 ms QRS Dur : 094 ms QT Int : 386 ms P-R-T Axes : 038 026 020 degrees QTc Int : 459 ms Normal sinus rhythm Normal ECG Confirmed by JEANA GEORGE ([id number]), editor trade journal KIM CLOUD ([id number]) on 05/31/2019 2:04:10 PM Referred By: ES Confirmed By:JEANA GEORGE
[2019-05-28] MEDS: 0.9% Normal Saline 1,000 ML 999 ML IV (17:35)
[2019-05-28] MEDS: Ketorolac 30 MG/ML Syringe IV (17:36)
[2019-05-28] MEDS: DiphenhydrAMINE 50 MG/ML Syringe 25 MG IV (17:36)
[2019-05-28] MEDS: Metoclopramide 10 MG/2 ML Vial IV (17:36)
[2019-05-28 18:22] VITALS: BP 138/92; PULSE 75; RESP 16
--- NOTE | 2019-05-28 19:09 | ED.DCSUM_ITS ---
- ER Visit Summary Date of Service: 05/28/19 Chief Complaint: Headache History of Present Illness: The patient is a 43 M who presents with a headache that is been getting worse over the past 2 weeks. Patient states the pain is on the left side of his neck and goes up into the left parietal area. Patient a dmits to some sinus pressure. Patient admits to nausea but denies any vomiting. Patient states he has had similar headaches with prior sinus infections. Patient denies any chest pain. Patient does admit to a cough. Patient also admits to some left ear pain. Patient also admits to neck and back pain. Patient denies any fevers or chills. Physical Examination: Vital signs are stable. Patient is afebrile. Patient is in no acute distress. Oral mucosa is pink and moist. Tympanic membranes are clear bilaterally. Neck is supple. Trachea is midline. There is no JVD. Heart was regular rate and rhythm. Lungs are clear and equal bilaterally. Abdomen is soft. Bowel sounds are normal. There is no tenderness. Cranial nerves II through XII are intact. There are no focal motor or sensory deficits noted. Test Results: EKG shows normal sinus rhythm with a rate of 85. There are no acute ST or T wave changes. Emergency Department Course and Treatment: Patient was given IV fluids, Reglan, Benadryl, and Toradol. Patient states his headache has improved. Patient was instructed to rest in a dark quiet room. Patient was instructed to continue fluids. Patient was instructed to take Tylenol or ibuprofen as needed for his headache. Patient was instructed to follow-up with his primary care physician in 5 to 7 days. Patient understood and was agreeable with the plan. All questions were answered. Disposition: Discharge home Impression: Headache This note was generated with [employer] dictation software. It may contain incorrect words, spelling, and punctuation that were not noted in review of the chart prior to signing ED Disposition - Plan for ED Patient: Disposition: Home or Assisted Living Diagnosis: Headache Instructions: HEADACHE, Unspecified Referrals: Hood Moore DO [Primary Care Provider] - 3-5 Days
[2019-05-28 19:29] VITALS: BP 143/95; PULSE 72; RESP 18; O2SAT 99
--- NOTE | 2019-05-28 19:30 | ED.RN ---
THIS NURSE REVIEWED D/C INSTRUCTIONS WITH PT. PT VERBALIZED UNDERSTANDING OF INSTRUCTIONS. IV D/C. IV CATHETER INTACT. PT TOLERATED WELL. PT DENIES FURTHER NEEDS OR QUESTIONS.
== END 2019-05-28 19:31 | disposition home or self-care (01) ==
PROVIDERS: Emergency Provider Emergency Medicine; PCP Family Medicine
DX: R51 Headache (principal); R11.0 Nausea; M54.2 Cervicalgia; M54.9 Dorsalgia, unspecified; H92.02 Otalgia, left ear; R20.2 Paresthesia of skin
CPT/HCPCS: 93005; 96361; 96374; 96375; 99284; J7030

== ENCOUNTER 2019-07-25 13:13 | Outpatient (RCR) | payer OTHER, SELFPAY | END 2019-08-04 23:59 | LOC: NS 13:13 | PROVIDERS: PCP Family Medicine; Visit Provider Family Medicine | DX: Z71.3 Dietary counseling and surveillance (principal); Z91.011 Allergy to milk products | CPT/HCPCS: 97802 ==

== ENCOUNTER 2019-08-15 13:52 | Outpatient (RCR) | payer OTHER, SELFPAY | END 2019-08-15 23:59 | disposition home or self-care (01) | LOC: NS 13:52 | PROVIDERS: PCP Family Medicine; Visit Provider Family Medicine | DX: Z71.3 Dietary counseling and surveillance (principal); Z91.011 Allergy to milk products | CPT/HCPCS: 97803 ==

== ENCOUNTER 2019-09-10 22:15 | Emergency (ER) | payer OTHER, SELFPAY ==
[2019-09-10 22:15] VITALS: BP 146/98; PULSE 83; RESP 15; TEMP 36.4; O2SAT 97; BMI 30.7
--- NOTE | 2019-09-10 22:47 | RAD_ITS ---
STUDY: X-RAY - RIGHT RADIUS AND ULNA REASON FOR EXAM: Male, 44 years old. BIT ON ARM BY [place]- PUNCTURE WOUNDS TO MEDIAL AND LATERAL PROXIMAL FOREARM TECHNIQUE: 2 view(s) of the forearm. COMPARISON: None. FINDINGS: There is no demonstrated soft tissue swelling. Normal visualized radius. Normal visualized ulna. RAD/Forearm 2 Views IMPRESSION: Normal x-ray examination of the radius and ulna. Electronically Signed: Trenton Danielle MD at 23:11 EDT Tel , Service support ,
[2019-09-10] MEDS: Ibuprofen 400 MG Tablet 800 MG PO (22:58)
[2019-09-10] MEDS: Doxycycline 100 MG CAPSULE PO (22:58)
--- NOTE | 2019-09-10 23:31 | ED.DCSUM_ITS ---
History of Present Illness Chief Complaint: Bite Informant: Patient Narrative: Patient stated he was bit by a family members dog bhaskar. The dog was a [place]s. Patient notes laceration and pain to the forearm as well as a puncture wound. Unknown last tetanus. Past Medical History - Allergies and Home Meds Allergies/Adverse Reactions: Allergies sucralfate [From Carafate] Allergy (Intermediate, Verified 09/10/19 22:20) rash/SOB erythromycin base Allergy (Verified 09/10/19 22:20) Hives Penicillins Allergy (Verified 09/10/19 22:20) Rash Primary Care Physician: Hood Moore DO [Primary Care Provider] - 7 Days for suture removal Surgical History: appendectomy Smoking Status: Never smoker Review of Systems General: Denies: Chills, Fever, Sweats Eyes: Denies: Visual changes - bilaterally, Diplopia ENT: Denies: Rhinorrhea, Sore throat Cardiovascular: Denies: Chest pain, Palpitations Respiratory: Denies: Dyspnea, Cough, Dyspnea on exertion Gastrointestinal: Denies: Abdominal pain, Nausea, Vomiting, Diarrhea, Melena, Hematochezia Genitourinary: Denies: Dysuria, Hematuria, Frequency Musculoskeletal: Reports: Extremity Pain. Denies: Back pain Skin: Denies: Rash, Wounds Neurological: Denies: Headache, Weakness, Numbness Physical Exam Vital Signs/Narrative: Vital Signs Temp Pulse Resp BP Pulse Ox 09/10/19 22:15 97.6 F L 83 15 146/98 H 97 Inital Vital Signs reviewed: Yes General: Well nourished, Well developed, No Acute Distress Head: Normocephalic, Atraumatic Eyes: Perrl, EOMI ENT: Moist mucous membranes, No rhinorrhea Neck: Supple, Nontender Cardiovascular: Regular rate, Regular rhythm, No murmurs Respiratory: No distress, CTA bilaterally, Chest nontender Abdomen: Soft, Nontender, Nondistended, Normal bowel sounds Back: Nontender, Normal Inspection Extremities: No edema, - - The puncture wound on the medial posterior aspect of the forearm. There is a gaping 1.5 cm laceration to the dorsum of the mid fore arm. It is open by about 1 cm. Fatty tissue exposed. Skin: Normal color, No rash Neurological: Alert, Oriented x3, Cranial nerves II-XII grossly intact, Normal Strength, Normal Sensation Psychological: Normal affect, Normal Mood Diagnostic/Tx/Re-eval Clinical Impression(s) from Imaging Studies Forearm X-Ray 09/10/19 22:47 IMPRESSION: Normal x-ray examination of the radius and ulna. Electronically Signed: Trenton Danielle MD at 23:11 EDT Tel , Service support , - Medical Decision Making X-rays I do not see any obvious bony injury or tooth fragments. It was explained to the patient that this is an extremely high risk wound for infection. Gave him doxycycline Motrin and update his tetanus with Adacel. Wash the wound with Shur-Clens and explored it. The gaping laceration was loosely approximated using 2 simple interrupted 4-0 Ethilon sutures. He will go home with a prescription for doxycycline return if worsening or concerns ED Disposition - Plan for ED Patient: Disposition: Home or Assisted Living Diagnosis: Dog bite of forearm, Laceration Instructions: ED BITE Dog Prescriptions: Doxycycline 100 mg PO BID #20 cap Transmission Status: Received by MAHENDRA [id number] Referrals: Hood Moore DO [Primary Care Provider] - 7 Days for suture removal
[2019-09-10] MEDS: Diphth,Pertuss(Acell),Tet Vac 0.5 ML Vial IM (23:49)
[2019-09-10 23:51] VITALS: RESP 16
== END 2019-09-11 00:15 | disposition home or self-care (01) ==
PROVIDERS: Emergency Provider Emergency Medicine; PCP Family Medicine
DX: S51.811A Laceration without foreign body of right forearm, initial encounter (principal); W54.0XXA Bitten by dog, initial encounter; Y93.9 Activity, unspecified; Y92.9 Unspecified place or not applicable
CPT/HCPCS: 12001; 73090; 90471; 90715; 99285

== ENCOUNTER 2019-12-27 13:00 | Outpatient (RCR) | payer OTHER, SELFPAY | END 2020-01-04 23:59 | LOC: NS 13:00 | PROVIDERS: PCP Family Medicine; Visit Provider Family Medicine | DX: Z71.3 Dietary counseling and surveillance (principal); E66.3 Overweight; Z91.011 Allergy to milk products | CPT/HCPCS: 97802; 97803 ==

== ENCOUNTER 2020-01-24 15:30 | Outpatient (RCR) | payer OTHER, SELFPAY | END 2020-02-04 23:59 | LOC: NS 15:30 | PROVIDERS: PCP Family Medicine; Visit Provider Family Medicine | DX: Z71.3 Dietary counseling and surveillance (principal); E66.3 Overweight | CPT/HCPCS: 97803 ==

== ENCOUNTER 2020-02-21 15:16 | Outpatient (RCR) | payer OTHER, SELFPAY | END 2020-03-05 23:59 | LOC: NS 15:16 | PROVIDERS: PCP Family Medicine; Visit Provider Family Medicine | DX: Z71.3 Dietary counseling and surveillance (principal); Z91.011 Allergy to milk products; E66.3 Overweight | CPT/HCPCS: 97803 ==

== ENCOUNTER 2020-03-20 14:23 | Outpatient (RCR) | payer OTHER, SELFPAY | END 2020-04-05 23:59 | LOC: NS 14:23 | PROVIDERS: PCP Family Medicine; Visit Provider Family Medicine | DX: Z71.3 Dietary counseling and surveillance (principal); E66.3 Overweight | CPT/HCPCS: 97803 ==

== ENCOUNTER 2020-04-24 11:46 | Outpatient (RCR) | payer OTHER, SELFPAY | END 2020-05-06 23:59 | LOC: NS 11:46 | PROVIDERS: PCP Family Medicine; Visit Provider Family Medicine | DX: Z71.3 Dietary counseling and surveillance (principal); E66.3 Overweight; Z91.011 Allergy to milk products | CPT/HCPCS: 97803 ==

== ENCOUNTER 2020-06-05 14:34 | Outpatient (RCR) | payer OTHER, SELFPAY | END 2020-07-04 23:59 | LOC: NS 14:34 | PROVIDERS: PCP Family Medicine; Visit Provider Family Medicine | DX: Z71.3 Dietary counseling and surveillance (principal); E66.3 Overweight | CPT/HCPCS: 97803 ==

== ENCOUNTER 2020-08-14 16:30 | Outpatient (RCR) | payer OTHER, SELFPAY | END 2020-09-03 23:59 | LOC: NS 16:30 | PROVIDERS: PCP Family Medicine; Visit Provider Family Medicine | DX: Z71.3 Dietary counseling and surveillance (principal); E66.3 Overweight; Z68.32 Body mass index [BMI] 32.0-32.9, adult | CPT/HCPCS: 97803 ==

== ENCOUNTER 2020-10-09 14:44 | Outpatient (RCR) | payer OTHER, SELFPAY | END 2020-11-03 23:59 | LOC: NS 14:44 | PROVIDERS: PCP Family Medicine; Visit Provider Family Medicine | DX: Z71.3 Dietary counseling and surveillance (principal); E66.3 Overweight; Z68.32 Body mass index [BMI] 32.0-32.9, adult | CPT/HCPCS: 97802; 97803 ==

== ENCOUNTER 2020-12-18 15:04 | Outpatient (RCR) | payer OTHER, SELFPAY | END 2020-12-18 23:59 | disposition home or self-care (01) | LOC: NS 15:04 | PROVIDERS: PCP Family Medicine; Visit Provider Family Medicine | DX: Z71.3 Dietary counseling and surveillance (principal); E66.3 Overweight; Z68.32 Body mass index [BMI] 32.0-32.9, adult | CPT/HCPCS: 97803 ==